=== PATIENT | male | born 1935 | race Caucasian/White ===

== ENCOUNTER 2017-03-13 09:03 | Emergency (ER) | payer OTHER ==
[~2017-03-13] VITALS: Ht 177.8 cm; Wt 59.1 kg
[2017-03-13] MEDS ORDERED: HTN PO (09:25)
[2017-03-13] MEDS ORDERED: ASPI81TA2 PO (09:27)
[2017-03-13] MEDS ORDERED: [UNRECOGNIZED DRUG - OTHER] PO (09:27)
[2017-03-13] MEDS ORDERED: ALBU8HFA IH (09:27)
[2017-03-13] MEDS ORDERED: IPRATROPIUM BROMIDE 0.5 MG/2.5 ML NEB SOLUTION NEB ONE (09:45)
[2017-03-13] MEDS ORDERED: ALBUTEROL SULFATE 5 MG/ML 20 ML NEB SOLN [BULK] NEB ONE (09:45)
[2017-03-13] MEDS ORDERED: MethylPREDNISolone SOD SUCC 125 MG/2 ML VIAL IVP ONE (09:45)
[2017-03-13 10:08] LABS: BASOPHILS % (AUTO) 0.1 % (0.0-2.0); EOSINOPHILS % (AUTO) 0.8 % (1.0-6.0); HEMATOCRIT 30.8 % (41-53); LYMPHOCYTES # (AUTO) 1.3 K/uL (1.0-4.8); MEAN CORPUSCULAR HEMOGLOBIN 26.6 pg (26.0-34.0); MEAN CORPUSCULAR HGB CONC 32.3 G/dL (31.0-37.0); MEAN CORPUSCULAR VOLUME 82 fL (80-100); MONOCYTES # (AUTO) 0.5 K/uL (0.1-1.0); MONOCYTES % (AUTO) 5.1 % (2.0-9.0); NEUTROPHILS # (AUTO) 8.7 K/uL (1.8-7.7); PLATELET COUNT (AUTO) 191 K/uL (150-450); RED BLOOD CELL COUNT(AUTO) 3.74 MIL/uL (4.50-5.90); RED CELL DISTRIBUTION WIDTH 21.8 % (11.5-14.5); WHITE BLOOD COUNT (AUTO) 10.6 K/uL (4.5-11.0)
[2017-03-13 10:14] LABS: CALCIUM, TOTAL 8.8 mg/dL (8.8-10.5); CREATININE 1.2 mg/dL (0.60-1.30); POTASSIUM 3.9 mmol/L (3.5-5.1)
[2017-03-13 10:38] LABS: ALBUMIN 3.6 g/dL (3.4-5.0); BILIRUBIN,TOTAL 0.6 mg/dL (0.1-1.0); CREATINE KINASE MB 7.5 ng/mL (0-5); TOTAL PROTEIN, SERUM 7.1 g/dL (6.4-8.2)
[2017-03-13] MEDS ORDERED: FUROSEMIDE 40 MG/4 ML VIAL IVP ONE (11:00)
[2017-03-13] MEDS ORDERED: ALBUTEROL SULFATE HFA 90 MCG/PUFF 8 GM INHALER IH ONE (11:15)
[2017-03-13 11:35] VITALS: BP 141/68
== END 2017-03-13 11:45 | disposition left against medical advice (07) ==
LOC: EMS 09:06
DX: J44.9 Chronic obstructive pulmonary disease, unspecified (principal); I51.9 Heart disease, unspecified; R79.89 Other specified abnormal findings of blood chemistry; I10 Essential (primary) hypertension; F17.210 Nicotine dependence, cigarettes, uncomplicated
CPT/HCPCS: 36415; 71010; 80053; 82550; 82553; 83880; 84484; 85025; 93005; 94644; 96374; 96375; 99285; J1940; J2930; J3535

== ENCOUNTER 2017-09-08 07:17 | Inpatient (IN) | payer OTHER ==
[~2017-09-08] VITALS: Ht 170.2 cm; Wt 65.1 kg
[~2017-09-08 07:17] MED LIST: ALBU8HFA IH; ASPI81TA39 PO
[2017-09-08] MEDS ORDERED: RAPID SEQUENCE KIT [RSI] 1 EACH KIT ONE (07:22)
[2017-09-08] MEDS ORDERED: SUCCINYLCHOLINE CHLORIDE 20 MG/ML 10 ML VIAL ONE (07:22)
[2017-09-08 07:29] LABS: ABG BASE EXCESS -2.7 mmol/L (-2.0-3.0); ABG CARBOXYHEMOGLOBIN 1.5 % (0.0-1.5); ABG HCO3 22.4 mmol/L (22.0-26.0); ABG METHEMOGLOBIN 0.5 % (0.0-1.5); ABG OXYGEN CONTENT 15.2 mL/dL (15.0-23.0); ABG OXYGEN SATURATION 99.1 % (95.0-98.0); ABG OXYHEMOGLOBIN 97.1 % (94.0-100.0); ABG PCO2 42 mmHg (35-45); ABG PH 7.356 (7.35-7.450); ABG TOTAL HEMOGLOBIN 10.9 G/dL (12.0-18.0); PO2, ARTERIAL BG 156.3 mmHg (71.0-79.0); SOURCE, BLOOD GAS ARTERIAL; TEMPERATURE, FAHRENHEIT, BG 97.8 FAHREN (96.0-98.6)
[2017-09-08] MEDS ORDERED: TIOT185 IH (07:29)
[2017-09-08] MEDS ORDERED: ALBU8HFA IH (07:29)
[2017-09-08] MEDS ORDERED: KDUR10 PO (07:29)
[2017-09-08] MEDS ORDERED: LISI-662 PO (07:29)
[2017-09-08] MEDS ORDERED: CARV6 PO (07:29)
[2017-09-08] MEDS ORDERED: FURO20 PO (07:29)
[2017-09-08] MEDS ORDERED: ASPI-1182 PO (07:29)
[2017-09-08 07:30] LABS: O2 DEVICE,BLOOD GAS BIPAP (ROOM AIR); SITE, BLOOD GAS RT RADIAL
[2017-09-08] MEDS ORDERED: SODIUM CHLORIDE 0.9% 1,000 ML IV ONE (07:30)
[2017-09-08] MEDS ORDERED: MethylPREDNISolone SOD SUCC 125 MG/2 ML VIAL IVP ONE (07:30)
[2017-09-08] MEDS ORDERED: ALBUTEROL SULFATE 5 MG/ML 20 ML NEB SOLN [BULK] NEB ONE (07:45)
[2017-09-08] MEDS ORDERED: IPRATROPIUM BROMIDE 0.5 MG/2.5 ML NEB SOLUTION NEB ONE (07:45)
[2017-09-08 07:50] LABS: BASOPHILS % (AUTO) 0.6 % (0.0-2.0); EOSINOPHILS % (AUTO) 3.1 % (1.0-6.0); HEMATOCRIT 32.3 % (41-53); HEMOGLOBIN 10.5 g/dL (13.5-17.5); LYMPHOCYTES # (AUTO) 2.4 K/uL (1.0-4.8); LYMPHOCYTES % (AUTO) 40.4 % (22.0-44.0); MEAN CORPUSCULAR HEMOGLOBIN 26.4 pg (26.0-34.0); MEAN CORPUSCULAR HGB CONC 32.5 G/dL (31.0-37.0); MEAN CORPUSCULAR VOLUME 81 fL (80-100); MONOCYTES # (AUTO) 0.3 K/uL (0.1-1.0); MONOCYTES % (AUTO) 5.7 % (2.0-9.0); NEUTROPHILS % (AUTO) 50.2 % (40.0-70.0); PLATELET COUNT (AUTO) 173 K/uL (150-450); RED BLOOD CELL COUNT(AUTO) 3.97 MIL/uL (4.50-5.90); RED CELL DISTRIBUTION WIDTH 19.3 % (11.5-14.5)
[2017-09-08 08:01] LABS: PROTHROMBIN TIME 10.2 SEC (9.4-11.6)
[2017-09-08] MEDS ORDERED: CefTRIAXone SODIUM 1 GM in DEXTROSE 5%-WATER 10 ML IV ONE (08:15)
[2017-09-08] MEDS ORDERED: AZITHROMYCIN 500 MG/NS 250 ML IV ONE (08:15)
[2017-09-08 08:16] LABS: B-TYPE NATRIURETIC PEPTIDE 1760 pg/mL (0-100)
[2017-09-08 08:18] LABS: ANION GAP 12 mmol/L (8-16); CARBON DIOXIDE 26 mmol/L (22-29); CHLORIDE 108 mmol/L (98-107); CREATININE 1.17 mg/dL (0.60-1.30); GLOMERULAR FILTR. RATE CALC 60 mL/min (>60); GLUCOSE,RANDOM 164 mg/dL (70-110); POTASSIUM 4.3 mmol/L (3.5-5.1); SODIUM SERUM 146 mmol/L (136-145); UREA NITROGEN, BLOOD 18 mg/dL (7-18)
[2017-09-08 08:43] LABS: ALANINE AMINOTRANSFERASE 21 U/L (12-78); ALBUMIN 3.6 g/dL (3.4-5.0); ALKALINE PHOSPHATASE 93 U/L (46-116); ASPARTATE AMINOTRANSFERASE 37 U/L (15-37); BILIRUBIN,TOTAL 0.3 mg/dL (0.1-1.0); CREATINE KINASE MB 2.5 ng/mL (0-5); CREATINE KINASE, TOTAL 106 U/L (39-308); TOTAL PROTEIN, SERUM 7.2 g/dL (6.4-8.2)
[2017-09-08] MEDS ORDERED: FUROSEMIDE 40 MG/4 ML VIAL IVP ONE (09:00)
[2017-09-08] MEDS ORDERED: NITROGLYCERIN 2% (1 GM=INCH) PACKET TP ONE (09:00)
[2017-09-08 10:31] LABS: APPEARANCE,URINE TURBID (CLEAR); BILIRUBIN,URINE NEGATIVE (NEGATIVE); GLUCOSE, URINE (UA) 100 mg/dL (NEGATIVE); KETONES,URINE NEGATIVE (NEGATIVE); LEUKOCYTE ESTERASE ,URINE NEGATIVE (NEGATIVE); NITRATE,URINE NEGATIVE (NEGATIVE); OCCULT BLOOD,URINE NEGATIVE (NEGATIVE); PH,URINE 8.5 (5.0-8.0); PROTEIN,URINE SEE CONFIRM (NEGATIVE); UROBILINOGEN,URINE 0.2 mg/dL (<=1.0)
[2017-09-08 10:49] LABS: SULFOSALICYLIC ACID,URINE 2+ (Negative)
[2017-09-08 10:50] LABS: RBC,URINE None Seen /HPF (0-2); WBC,URINE 0-2 /HPF (0-5)
[2017-09-08 10:51] LABS: BACTERIA,URINE Moderate /HPF (None Seen)
[2017-09-08 10:52] LABS: TRIPLE PHOSPHATE CRYSTAL,UR Moderate /LPF (None Seen)
[2017-09-08] MEDS ORDERED: ZOLPIDEM TARTRATE 5 MG TABLET PO PRN (11:30)
[2017-09-08] MEDS ORDERED: ALBUTEROL SULFATE 2.5 MG/0.5 ML NEB SOLUTION NEB PRN (11:30)
[2017-09-08] MEDS ORDERED: ONDANSETRON HCL 4 MG/2 ML VIAL IVP PRN (11:30)
[2017-09-08] MEDS ORDERED: BISACODYL 10 MG RECTAL RECTAL SUPPOSITORY PR PRN (11:30)
[2017-09-08] MEDS ORDERED: IPRATROPIUM BROMIDE 0.5 MG/2.5 ML NEB SOLUTION NEB PRN (11:30)
[2017-09-08] MEDS ORDERED: HydrALAZINE HCL 20 MG/ML VIAL IVP PRN (11:30)
[2017-09-08] MEDS ORDERED: HYDROCODONE/ACETAMINOPHEN 5-325 MG TABLET PO PRN (11:30)
[2017-09-08] MEDS ORDERED: MAGNESIUM HYDROXIDE SUSPENSION 30 ML UDCUP PO PRN (11:30)
[2017-09-08] MEDS ORDERED: ACETAMINOPHEN 325 MG TABLET PO PRN (11:30)
[2017-09-08 11:56] VITALS: BP 160/74
[2017-09-08] MEDS: CARVEDILOL 6.25 MG TABLET PO SCH ×2 (12:23→20:39)
[2017-09-08] MEDS: MethylPREDNISolone SOD SUCC 125 MG/2 ML VIAL IVP SCH ×2 (12:23→17:14)
[2017-09-08] MEDS: ALBUTEROL SULFATE 2.5 MG/0.5 ML NEB SOLUTION NEB SCH ×2 (14:44→19:52)
[2017-09-08] MEDS: IPRATROPIUM BROMIDE 0.5 MG/2.5 ML NEB SOLUTION NEB SCH ×2 (14:44→19:52)
[2017-09-08 16:06] VITALS: BP 157/81
[2017-09-08] MEDS: HEPARIN SODIUM,PORCINE 5,000 UNITS/ML VIAL SQ SCH (16:18)
[2017-09-08] MEDS: BENZONATATE 100 MG CAPSULE PO SCH ×2 (16:19→20:39)
[2017-09-08] MEDS: MORPHINE SULFATE 2 MG/ML SYRINGE IVP PRN (17:14)
[2017-09-08] MEDS: NITROGLYCERIN 2% (1 GM=INCH) PACKET TP SCH (17:24)
[2017-09-08] MEDS: ATORVASTATIN CALCIUM 20 MG TABLET PO SCH (18:41)
[2017-09-08 20:31] VITALS: BP 153/77
[2017-09-08] MEDS: FUROSEMIDE 20 MG/2 ML VIAL IVP SCH (20:39)
[2017-09-08] MEDS: DOCUSATE SODIUM 100 MG CAPSULE PO SCH (20:39)
[2017-09-08] MEDS: GuaiFENesin SR 600 MG ER TABLET PO SCH (20:39)
[2017-09-09] VITALS (7 sets, daily range): BP systolic 137–173; BP diastolic 68–90
[2017-09-09] MEDS: NITROGLYCERIN 2% (1 GM=INCH) PACKET TP SCH ×3 (00:37→16:08)
[2017-09-09] MEDS: MethylPREDNISolone SOD SUCC 125 MG/2 ML VIAL IVP SCH ×4 (00:38→17:11)
[2017-09-09] MEDS: HEPARIN SODIUM,PORCINE 5,000 UNITS/ML VIAL SQ SCH ×3 (00:38→16:08)
[2017-09-09] MEDS: ALBUTEROL SULFATE 2.5 MG/0.5 ML NEB SOLUTION NEB SCH ×4 (01:45→20:26)
[2017-09-09] MEDS: IPRATROPIUM BROMIDE 0.5 MG/2.5 ML NEB SOLUTION NEB SCH ×4 (01:45→20:26)
[2017-09-09] MEDS: MORPHINE SULFATE 2 MG/ML SYRINGE IVP PRN (03:57)
[2017-09-09 05:55] LABS: BASOPHILS % (AUTO) 0.1 % (0.0-2.0); EOSINOPHILS % (AUTO) 0 % (1.0-6.0); HEMATOCRIT 27.1 % (41-53); HEMOGLOBIN 9.2 g/dL (13.5-17.5); LYMPHOCYTES # (AUTO) 0.6 K/uL (1.0-4.8); LYMPHOCYTES % (AUTO) 12.5 % (22.0-44.0); MEAN CORPUSCULAR HEMOGLOBIN 27.2 pg (26.0-34.0); MEAN CORPUSCULAR HGB CONC 33.9 G/dL (31.0-37.0); MEAN CORPUSCULAR VOLUME 80 fL (80-100); MONOCYTES # (AUTO) 0.1 K/uL (0.1-1.0); MONOCYTES % (AUTO) 1.8 % (2.0-9.0); NEUTROPHILS # (AUTO) 4.1 K/uL (1.8-7.7); PLATELET COUNT (AUTO) 127 K/uL (150-450); RED BLOOD CELL COUNT(AUTO) 3.37 MIL/uL (4.50-5.90); RED CELL DISTRIBUTION WIDTH 19.2 % (11.5-14.5)
[2017-09-09 05:56] LABS: NEUTROPHILS % (AUTO) 85.6 % (40.0-70.0)
[2017-09-09 06:15] LABS: ALBUMIN 3.2 g/dL (3.4-5.0); BILIRUBIN,TOTAL 0.4 mg/dL (0.1-1.0); CALCIUM, TOTAL 8.6 mg/dL (8.8-10.5); CREATININE 1.29 mg/dL (0.60-1.30); MAGNESIUM 1.7 mg/dL (1.80-2.40); POTASSIUM 4.1 mmol/L (3.5-5.1); TOTAL PROTEIN, SERUM 6.4 g/dL (6.4-8.2)
[2017-09-09] MEDS ORDERED: SODIUM CHLORIDE 0.9% 250 ML IV ONE (08:09)
[2017-09-09] MEDS: FUROSEMIDE 20 MG/2 ML VIAL IVP SCH ×2 (08:14→20:55)
[2017-09-09] MEDS: LISINOPRIL 20 MG TABLET PO SCH (08:14)
[2017-09-09] MEDS: DOCUSATE SODIUM 100 MG CAPSULE PO SCH ×3 (08:14→21:00)
[2017-09-09] MEDS: PANTOPRAZOLE SODIUM 40 MG DR TABLET PO SCH (08:14)
[2017-09-09] MEDS: BENZONATATE 100 MG CAPSULE PO SCH ×3 (08:14→20:56)
[2017-09-09] MEDS: AZITHROMYCIN 500 MG/NS 250 ML IV SCH (08:15)
[2017-09-09] MEDS: ATORVASTATIN CALCIUM 20 MG TABLET PO SCH (08:15)
[2017-09-09] MEDS: CARVEDILOL 6.25 MG TABLET PO SCH (08:15)
[2017-09-09] MEDS: GuaiFENesin SR 600 MG ER TABLET PO SCH ×2 (08:15→20:55)
[2017-09-09] MEDS: ASPIRIN 81 MG EC TABLET PO SCH (08:17)
[2017-09-09] MEDS ORDERED: MAGNESIUM SULFATE 2 GM in DEXTROSE 5%-WATER 50 ML IV PRN (12:45)
[2017-09-09] MEDS ORDERED: MAGNESIUM SULFATE 4 GM/WATER 100 ML IV PRN (12:45)
[2017-09-09] MEDS: MAGNESIUM OXIDE 400 MG TABLET PO PRN ×2 (17:11→20:57)
[2017-09-09] MEDS: CARVEDILOL 12.5 MG TABLET PO SCH (20:55)
[2017-09-10] VITALS (8 sets, daily range): BP systolic 115–168; BP diastolic 46–80
[2017-09-10] MEDS: HEPARIN SODIUM,PORCINE 5,000 UNITS/ML VIAL SQ SCH ×4 (00:03→23:40)
[2017-09-10] MEDS: MethylPREDNISolone SOD SUCC 125 MG/2 ML VIAL IVP SCH ×5 (00:03→23:40)
[2017-09-10] MEDS: NITROGLYCERIN 2% (1 GM=INCH) PACKET TP SCH ×4 (00:04→23:40)
[2017-09-10] MEDS: ALBUTEROL SULFATE 2.5 MG/0.5 ML NEB SOLUTION NEB SCH ×4 (02:17→20:44)
[2017-09-10] MEDS: IPRATROPIUM BROMIDE 0.5 MG/2.5 ML NEB SOLUTION NEB SCH ×4 (02:18→20:45)
[2017-09-10 06:53] LABS: BASOPHILS % (AUTO) 0.1 % (0.0-2.0); EOSINOPHILS % (AUTO) 0 % (1.0-6.0); HEMATOCRIT 25.7 % (41-53); HEMOGLOBIN 8.7 g/dL (13.5-17.5); LYMPHOCYTES # (AUTO) 0.4 K/uL (1.0-4.8); LYMPHOCYTES % (AUTO) 4.5 % (22.0-44.0); MEAN CORPUSCULAR HEMOGLOBIN 27.3 pg (26.0-34.0); MEAN CORPUSCULAR HGB CONC 33.8 G/dL (31.0-37.0); MEAN CORPUSCULAR VOLUME 81 fL (80-100); MONOCYTES # (AUTO) 0.2 K/uL (0.1-1.0); MONOCYTES % (AUTO) 2.2 % (2.0-9.0); NEUTROPHILS # (AUTO) 7.4 K/uL (1.8-7.7); PLATELET COUNT (AUTO) 125 K/uL (150-450); RED BLOOD CELL COUNT(AUTO) 3.19 MIL/uL (4.50-5.90); RED CELL DISTRIBUTION WIDTH 19.4 % (11.5-14.5)
[2017-09-10 07:03] LABS: POTASSIUM 3.6 mmol/L (3.5-5.1)
[2017-09-10 07:04] LABS: ALBUMIN 3.1 g/dL (3.4-5.0); BILIRUBIN,TOTAL 0.4 mg/dL (0.1-1.0); CALCIUM, TOTAL 8.4 mg/dL (8.8-10.5); CREATININE 1.34 mg/dL (0.60-1.30); TOTAL PROTEIN, SERUM 6.2 g/dL (6.4-8.2)
[2017-09-10 07:33] LABS: NEUTROPHILS % (AUTO) 93.2 % (40.0-70.0)
[2017-09-10] MEDS: FUROSEMIDE 20 MG/2 ML VIAL IVP SCH ×2 (08:24→20:35)
[2017-09-10] MEDS: ATORVASTATIN CALCIUM 20 MG TABLET PO SCH (08:24)
[2017-09-10] MEDS: ASPIRIN 81 MG EC TABLET PO SCH (08:24)
[2017-09-10] MEDS: DOCUSATE SODIUM 100 MG CAPSULE PO SCH ×2 (08:24→20:35)
[2017-09-10] MEDS: GuaiFENesin SR 600 MG ER TABLET PO SCH ×2 (08:24→20:35)
[2017-09-10] MEDS: CARVEDILOL 12.5 MG TABLET PO SCH ×2 (08:24→20:35)
[2017-09-10] MEDS: PANTOPRAZOLE SODIUM 40 MG DR TABLET PO SCH (08:25)
[2017-09-10] MEDS: LISINOPRIL 20 MG TABLET PO SCH (08:25)
[2017-09-10] MEDS: BENZONATATE 100 MG CAPSULE PO SCH ×3 (08:25→20:35)
[2017-09-10] MEDS: AZITHROMYCIN 500 MG/NS 250 ML IV SCH (08:27)
[2017-09-11] VITALS (7 sets, daily range): BP systolic 137–173; BP diastolic 51–87
[2017-09-11] MEDS: ALBUTEROL SULFATE 2.5 MG/0.5 ML NEB SOLUTION NEB SCH ×4 (02:10→19:27)
[2017-09-11] MEDS: IPRATROPIUM BROMIDE 0.5 MG/2.5 ML NEB SOLUTION NEB SCH ×4 (02:11→19:27)
[2017-09-11] MEDS: MethylPREDNISolone SOD SUCC 125 MG/2 ML VIAL IVP SCH (05:31)
[2017-09-11 07:19] LABS: BASOPHILS % (AUTO) 0.2 % (0.0-2.0); EOSINOPHILS % (AUTO) 0 % (1.0-6.0); HEMATOCRIT 29.6 % (41-53); HEMOGLOBIN 9.6 g/dL (13.5-17.5); LYMPHOCYTES # (AUTO) 0.3 K/uL (1.0-4.8); MEAN CORPUSCULAR HEMOGLOBIN 26.7 pg (26.0-34.0); MEAN CORPUSCULAR HGB CONC 32.3 G/dL (31.0-37.0); MEAN CORPUSCULAR VOLUME 83 fL (80-100); MONOCYTES # (AUTO) 0.1 K/uL (0.1-1.0); MONOCYTES % (AUTO) 2.1 % (2.0-9.0); NEUTROPHILS # (AUTO) 5.9 K/uL (1.8-7.7); PLATELET COUNT (AUTO) 116 K/uL (150-450); RED BLOOD CELL COUNT(AUTO) 3.58 MIL/uL (4.50-5.90); RED CELL DISTRIBUTION WIDTH 19.3 % (11.5-14.5)
[2017-09-11 07:21] LABS: NEUTROPHILS % (AUTO) 93.7 % (40.0-70.0)
[2017-09-11 07:38] LABS: ALBUMIN 2.8 g/dL (3.4-5.0); BILIRUBIN,TOTAL 0.4 mg/dL (0.1-1.0); CALCIUM, TOTAL 8.2 mg/dL (8.8-10.5); CREATININE 1.18 mg/dL (0.60-1.30); MAGNESIUM 2.1 mg/dL (1.80-2.40); POTASSIUM 3.7 mmol/L (3.5-5.1)
[2017-09-11] MEDS: HEPARIN SODIUM,PORCINE 5,000 UNITS/ML VIAL SQ SCH ×3 (08:00→23:21)
[2017-09-11] MEDS: NITROGLYCERIN 2% (1 GM=INCH) PACKET TP SCH ×3 (08:51→23:22)
[2017-09-11] MEDS: ASPIRIN 81 MG EC TABLET PO SCH (08:51)
[2017-09-11] MEDS: DOCUSATE SODIUM 100 MG CAPSULE PO SCH ×2 (08:51→21:19)
[2017-09-11] MEDS: GuaiFENesin SR 600 MG ER TABLET PO SCH ×2 (08:51→21:19)
[2017-09-11] MEDS: BENZONATATE 100 MG CAPSULE PO SCH ×3 (08:52→21:19)
[2017-09-11] MEDS: FUROSEMIDE 20 MG/2 ML VIAL IVP SCH ×2 (08:52→21:19)
[2017-09-11] MEDS: ATORVASTATIN CALCIUM 20 MG TABLET PO SCH (08:52)
[2017-09-11] MEDS: PANTOPRAZOLE SODIUM 40 MG DR TABLET PO SCH (08:53)
[2017-09-11] MEDS: CARVEDILOL 12.5 MG TABLET PO SCH ×2 (08:53→21:19)
[2017-09-11] MEDS: LISINOPRIL 20 MG TABLET PO SCH (08:53)
[2017-09-11] MEDS: AZITHROMYCIN 500 MG/NS 250 ML IV SCH (08:58)
[2017-09-11] MEDS: PredniSONE 20 MG TABLET PO SCH (12:24)
[2017-09-12] MEDS: ALBUTEROL SULFATE 2.5 MG/0.5 ML NEB SOLUTION NEB SCH ×3 (02:21→15:12)
[2017-09-12] MEDS: IPRATROPIUM BROMIDE 0.5 MG/2.5 ML NEB SOLUTION NEB SCH ×3 (02:21→15:12)
[2017-09-12 04:43] VITALS: BP 118/65
[2017-09-12 06:05] LABS: BASOPHILS % (AUTO) 0.2 % (0.0-2.0); EOSINOPHILS % (AUTO) 0 % (1.0-6.0); HEMATOCRIT 27.5 % (41-53); HEMOGLOBIN 9.4 g/dL (13.5-17.5); LYMPHOCYTES # (AUTO) 0.5 K/uL (1.0-4.8); LYMPHOCYTES % (AUTO) 5.8 % (22.0-44.0); MEAN CORPUSCULAR HEMOGLOBIN 27.7 pg (26.0-34.0); MEAN CORPUSCULAR HGB CONC 34.3 G/dL (31.0-37.0); MEAN CORPUSCULAR VOLUME 81 fL (80-100); MONOCYTES # (AUTO) 0.5 K/uL (0.1-1.0); MONOCYTES % (AUTO) 6.5 % (2.0-9.0); PLATELET COUNT (AUTO) 119 K/uL (150-450); RED BLOOD CELL COUNT(AUTO) 3.41 MIL/uL (4.50-5.90); RED CELL DISTRIBUTION WIDTH 19.1 % (11.5-14.5)
[2017-09-12 06:24] LABS: NEUTROPHILS % (AUTO) 87.5 % (40.0-70.0)
[2017-09-12 06:27] LABS: ALBUMIN 2.8 g/dL (3.4-5.0); BILIRUBIN,TOTAL 0.4 mg/dL (0.1-1.0); CREATININE 1.29 mg/dL (0.60-1.30); POTASSIUM 3.9 mmol/L (3.5-5.1); TOTAL PROTEIN, SERUM 5.7 g/dL (6.4-8.2)
[2017-09-12 07:27] VITALS: BP 118/72
[2017-09-12] MEDS: CARVEDILOL 12.5 MG TABLET PO SCH (09:00)
[2017-09-12] MEDS: HEPARIN SODIUM,PORCINE 5,000 UNITS/ML VIAL SQ SCH ×2 (10:04→15:50)
[2017-09-12] MEDS: FUROSEMIDE 20 MG/2 ML VIAL IVP SCH (10:04)
[2017-09-12] MEDS: AZITHROMYCIN 500 MG/NS 250 ML IV SCH (10:04)
[2017-09-12] MEDS: PANTOPRAZOLE SODIUM 40 MG DR TABLET PO SCH (10:05)
[2017-09-12] MEDS: BENZONATATE 100 MG CAPSULE PO SCH ×2 (10:05→15:49)
[2017-09-12] MEDS: LISINOPRIL 20 MG TABLET PO SCH (10:05)
[2017-09-12] MEDS: ATORVASTATIN CALCIUM 20 MG TABLET PO SCH (10:05)
[2017-09-12] MEDS: ASPIRIN 81 MG EC TABLET PO SCH (10:05)
[2017-09-12] MEDS: GuaiFENesin SR 600 MG ER TABLET PO SCH (10:06)
[2017-09-12] MEDS: DOCUSATE SODIUM 100 MG CAPSULE PO SCH (10:06)
[2017-09-12] MEDS: NITROGLYCERIN 2% (1 GM=INCH) PACKET TP SCH ×2 (10:06→15:50)
[2017-09-12] MEDS: PredniSONE 20 MG TABLET PO SCH (10:09)
[2017-09-12 11:05] VITALS: BP 130/56
[2017-09-12 15:20] VITALS: BP 106/59
== END 2017-09-12 17:20 | disposition home or self-care (01) | DRG 280 ==
LOC: EMS 07:18 → 5S 10:54
PROVIDERS: ADMIT Internal Medicine; ATTEND Internal Medicine
PROC: 5A09357 Assistance with Respiratory Ventilation, Less than 24 Consecutive Hours, Continuous Positive Airway Pressure (ICD-10-PCS; principal; 2017-09-08)
PROC: 5A09357 Assistance with Respiratory Ventilation, Less than 24 Consecutive Hours, Continuous Positive Airway Pressure (ICD-10-PCS; 2017-09-10)
DX: I13.0 Hypertensive heart and chronic kidney disease with heart failure and stage 1 through stage 4 chronic kidney disease, or unspecified chronic kidney disease (principal); I50.21 Acute systolic (congestive) heart failure; I21.4 Non-ST elevation (NSTEMI) myocardial infarction; E43 Unspecified severe protein-calorie malnutrition; J96.01 Acute respiratory failure with hypoxia; J44.1 Chronic obstructive pulmonary disease with (acute) exacerbation; N17.9 Acute kidney failure, unspecified; F17.210 Nicotine dependence, cigarettes, uncomplicated; I25.110 Atherosclerotic heart disease of native coronary artery with unstable angina pectoris; M19.90 Unspecified osteoarthritis, unspecified site; Z96.649 Presence of unspecified artificial hip joint; H26.9 Unspecified cataract; D63.8 Anemia in other chronic diseases classified elsewhere; I08.0 Rheumatic disorders of both mitral and aortic valves; E11.22 Type 2 diabetes mellitus with diabetic chronic kidney disease; D64.9 Anemia, unspecified; F10.10 Alcohol abuse, uncomplicated; N18.9 Chronic kidney disease, unspecified; Z79.82 Long term (current) use of aspirin; Z79.899 Other long term (current) drug therapy; Z68.22 Body mass index [BMI] 22.0-22.9, adult
CPT/HCPCS: 82805; 83735; 87086; 93005; 93306; 94640; 94644; 94660; 96361; 96365; 96368; 96374; 97161; 99291; J0330; J0360; J0456; J0696; J1644; J1940; J2270; J2930; J7030; J7050; J7060